=== PATIENT | male | born 1975 | race African-American/Black ===

== ENCOUNTER 2016-10-27 22:34 | Emergency (ER) | payer MEDICAID ==
[~2016-10-27] VITALS: Ht 167.6 cm; Wt 75.0 kg
[2016-10-28] MEDS ORDERED: HYDROCODONE/ACETAMINOPHEN 5/325MG TABLET PO ONE (00:45)
[2016-10-28 04:56] VITALS: BP 113/59
== END 2016-10-28 05:23 | disposition home or self-care (01) ==
LOC: ER 22:34
DX: S09.90XA Unspecified injury of head, initial encounter (principal); M54.5 Low back pain; I10 Essential (primary) hypertension; W10.9XXA Fall (on) (from) unspecified stairs and steps, initial encounter; Y93.89 Activity, other specified; Y99.8 Other external cause status; Y92.89 Other specified places as the place of occurrence of the external cause; Z98.890 Other specified postprocedural states
CPT/HCPCS: 70450; 72070; 72100; 81025; 99284

== ENCOUNTER 2022-04-20 10:15 | Emergency (ER) | payer MEDICAID ==
[~2022-04-20] VITALS: Ht 167.6 cm; Wt 75.0 kg
[2022-04-20 10:31] VITALS: BP 120/78
[2022-04-20] MEDS ORDERED: HYDROCODONE/ACETAMINOPHEN 10/325MG TABLET PO ONE (11:45)
[2022-04-20] MEDS ORDERED: CYCL10TA21 MT (15:36)
[2022-04-20] MEDS ORDERED: NAPR-681 MT (15:36)
== END 2022-04-20 16:09 | disposition home or self-care (01) ==
LOC: ER 10:15
DX: S09.8XXA Other specified injuries of head, initial encounter (principal); S16.1XXA Strain of muscle, fascia and tendon at neck level, initial encounter; M54.6 Pain in thoracic spine; W08.XXXA Fall from other furniture, initial encounter; Y93.89 Activity, other specified; Y92.89 Other specified places as the place of occurrence of the external cause; Y99.0 Civilian activity done for income or pay
CPT/HCPCS: 72128; 99284

== ENCOUNTER 2022-11-03 08:43 | Emergency (ER) | payer MEDICAID, OTHER ==
[~2022-11-03] VITALS: Ht 175.3 cm; Wt 72.0 kg
[~2022-11-03 08:43] MED LIST: CYCL10TA21 MT; NAPR-681 MT
[2022-11-03 08:47] VITALS: O2SAT 97
[2022-11-03] MEDS ORDERED: SULF1TAB48 MT (09:13)
[2022-11-03] MEDS ORDERED: CEPH500C2 MT (09:13)
[2022-11-03] MEDS ORDERED: CEPHALEXIN 250MG CAPSULE PO ONE (09:15)
[2022-11-03 09:58] VITALS: BP 122/80; PULSE 81; RESP 18; TEMP 98.2
== END 2022-11-03 09:45 | disposition home or self-care (01) ==
LOC: ER 08:43
DX: L03.317 Cellulitis of buttock (principal); I10 Essential (primary) hypertension; F12.10 Cannabis abuse, uncomplicated; Z88.6 Allergy status to analgesic agent
CPT/HCPCS: 99283

== ENCOUNTER 2022-11-07 06:12 | Emergency (ER) | payer OTHER ==
[~2022-11-07] VITALS: Ht 172.7 cm; Wt 64.0 kg
[~2022-11-07 06:12] MED LIST changes: +CEPH500C2 MT; +SULF1TAB48 MT
[2022-11-07 06:15] VITALS: O2SAT 99
[2022-11-07 06:45] LABS: HEMATOCRIT. 41.8 % (42.0-52.0); HEMOGLOBIN. 13.9 g/dL (14.0-18.0); MEAN CORPUSCULAR HEMOGLOBIN 30.7 pg (28.0-32.0); MEAN CORPUSCULAR HGB CONC 33.2 g/dL (31.0-37.0); MEAN CORPUSCULAR VOLUME 92.4 fL (80.0-94.0); MEAN PLATELET VOLUME 8.4 fl (7.4-10.4); PLATELET 307 x1000/uL (130-400); RED BLOOD CELL COUNT 4.52 mill/uL (4.7-6.1); RED CELL DISTRIBUTION WIDTH 13.9 % (11.6-14.6); WHITE BLOOD COUNT 19.4 x1000/uL (4.5-11.0)
[2022-11-07 06:46] LABS: DIFFERENTIAL COMMENT 1
[2022-11-07 06:54] LABS: CHLORIDE 96 mEq/L (98-107); INDEX HEMOLYSI 1 (1-3); INDEX ICTERIC 1 (1-4); INDEX LIPEMIC 1 (1-3); POTASSIUM 3.1 mEq/L (3.5-5.1); SODIUM 133 mEq/L (136-145)
[2022-11-07 07:04] LABS: ALANINE AMINOTRANSFERASE 98 IU/L (13-61); ASPARTATE AMINOTRANSFERASE 94 IU/L (15-37); BILIRUBIN TOTAL 1.7 mg/dL (0.1-1.0); CALCIUM 9.4 mg/dL (8.5-10.1); CARBON DIOXIDE 31 mEq/L (21-32); CREATININE 0.9 mg/dL (0.6-1.3); GLUCOSE 170 mg/dL (70-105); PROTEIN TOTAL 7.6 g/dL (6.0-8.3); UREA NITROGEN BLOOD 9 mg/dL (7-21)
[2022-11-07] MEDS ORDERED: IOHEXOL-300 100 ML BOTTLE ONE (09:44)
[2022-11-07] MEDS ORDERED: PIPERACILLIN/TAZOBACTAM 3.375GM/50ML PREMIX IV ONE (10:00)
[2022-11-07] MEDS ORDERED: METRONIDAZOLE 500 MG PREMIX 100 ML IV ONE (10:00)
[2022-11-07] MEDS ORDERED: PIPERACILLIN/TAZ 3.375G PREMIX 50 ML IV NR (10:15)
[2022-11-07 13:27] VITALS: BP 118/53; PULSE 85; RESP 17; TEMP 98.5
[2022-11-07 16:14] LABS: PLATELET ESTIMATE NORMAL
== END 2022-11-07 13:30 | disposition short-term general hospital (02) ==
LOC: ER 06:12 → CANBEDREQ 11:09 → ER 13:30
DX: L03.317 Cellulitis of buttock (principal); F12.10 Cannabis abuse, uncomplicated; I10 Essential (primary) hypertension; Z88.6 Allergy status to analgesic agent
CPT/HCPCS: 80053; 83605; 85025; 87040; 36415; 72192; 73701; 76376; 96368; 96365; 99285; Q9967; J3490; J2543; Z7610